=== PATIENT | female | born 1990 | race Caucasian/White ===

== ENCOUNTER 2023-08-08 09:38 | Emergency (ER) | payer OTHER, SELFPAY ==
[2023-08-08 09:45] VITALS: BP 124/60; PULSE 112; RESP 17; TEMP 36.6; O2SAT 99
[2023-08-08 09:49] VITALS: BP 121/64; BP 124/60; PULSE 112; PULSE 116; RESP 19; TEMP 35.7; O2SAT 96; O2SAT 99; BMI 29.3
--- NOTE | 2023-08-08 10:07 | ED_ITS ---
HPI - Nausea/Vomiting/Diarrhea General Chief complaint: Nausea/Vomiting/Diarrhea Stated complaint: N/V X1 DAY PER EMS Time Seen by Provider: 08/08/23 10:06 Source: patient Mode of arrival: ambulatory Limitations: no limitations History of Present Illness HPI Narrative: 33-year-old female presents emergency room with nausea vomiting diarrhea since last night her also has similar symptoms she called 911 due to cramping and spasms in both hands. Patient has had this problem in the past. She states she had some vomiting diarrhea will traveling in the hand carpal pedal spasms. They are very concerned because she became pale and could control the spasms. She denies any fevers chills she is on Ozempic to lose weight currently as well MD elicited complaint: nausea, vomiting and diarrhea Related Data Previous Rx's ?Medication ?Instructions ?Recorded ondansetron 4 mg disintegrating 4 mg PO Q6H #14 tabs 08/08/23 tablet Allergies Allergy/AdvReac Type Severity Reaction Status Date / Time No Known Allergies Allergy Verified 08/08/23 09:52 Review of Systems 2 Review of Systems: Review of systems: General: Patient denies any fever chills recent illness or falls Musculoskeletal: Denies back pain or body aches or other injuries HEENT: denies headache, runny nose, ear pain Respiratory: denies shortness of breath, cough Cardiovascular: no chest pain or palpitations : denies dysuria, frequency Abdomen: Diarrhea nausea vomiting denies abdominal pain Extremities: no swelling, no pain Skin: no diaphoresis Yes all other systems are reviewed and are negative PMFSH Social History Social History Smoked in Last 30 Days: No Substance Use Type: Marijuana Substance Use Frequency: Daily Last Used Substance: Hours (ago) Advance Directives: No Advance Directives Information Provided: No Physical Exam 2 Vital Signs: Vital Signs: Last Vital Signs Temp 96.2 F L 08/08/23 09:49 Pulse 112 H 08/08/23 09:49 Resp 19 08/08/23 09:49 BP 124/60 08/08/23 09:49 Pulse Ox 96 08/08/23 09:49 O2 Del Method Room Air 08/08/23 09:49 BMI result Body Mass Index 29.3 General: Well-appearing well-nourished in no signs of distress HEENT: Normocephalic atraumatic Neck: No signs of JVD, no masses no tenderness or lymphadenopathy Cardiovascular: Regular rate and rhythm Respiratory: Clear to auscultation bilaterally Abdomen: Soft nontender no masses Extremities: Normal pedal pulses no signs of edema Skin: Dry warm no rashes Back: No tenderness full ROM Medications Administered Discontinued Medications Generic Name Dose Route Start Last Admin Trade Name Maurizioq PRN Reason Stop Dose Admin Famotidine 20 mg 08/08/23 10:08 08/08/23 10:31 Famotidine/Pf 20 Mg/2 Ml Vial IVPUSH 08/08/23 10:09 20 mg ONCE ONE Administration Sodium Chloride 1,000 mls @ 999 mls/hr 08/08/23 10:15 08/08/23 10:32 Ns IV 08/08/23 11:15 999 mls/hr .Q1H1M ROSIO Administration Ondansetron HCl 4 mg 08/08/23 10:08 08/08/23 10:29 Ondansetron Hcl 4 Mg/2 Ml Vial IVPUSH 08/08/23 10:09 4 mg ONCE ONE Administration Medical Decision Making Medical Decision Making [facility] Narrative: I did explain to the patient that currently our chemistry analyzer is down that we have been waiting hours she is okay with following up on those as long as she is feeling better the patient fluids I did order labs but may not be able to get the results back in real time. Differential Diagnosis Differential Diagnoses: The differential diagnosis associated with the presentation includes carpal pedal spasm likely due to hyperventilation nausea vomiting diarrhea dehydration likely due to a virus as her just had the same thing Admission/Observation Consideration of admission/observation: Escalation of care including admission/observation considered Lab Data [facility] Lab Attestation statement: I reviewed the patient's lab results. 08/08/23 10:24 08/08/23 10:24 Labs: Lab Results 08/08/23 Range/Units 10:24 WBC 13.5 H (4.8-10.8) X10*3/uL RBC 5.13 (4.20-5.50) X10*6/uL Hgb 15.9 (12.0-16.0) g/dl Hct 44.7 (37.0-47.0) % MCV 87.1 (80.0-98.0) fL MCH 31.0 (27.0-33.0) pg MCHC 35.6 H (31.0-35.0) g/dl RDW 11.5 (11.0-16.0) % Plt Count 256 (160-400) X10*3/uL MPV 9.6 (9.4-12.3) fL Immature Gran % (Auto) 0.4 (0.0-0.4) % Neut % (Auto) 90.9 H (45-73) % Lymph % (Auto) 3.4 L (20-40) % [place] % (Auto) 4.8 (2-11) % Eos % (Auto) 0.4 (0-4) % Baso % (Auto) 0.1 (0-2) % Lymph # (Auto) 0.5 L (1.2-4.9) X10*3/uL [place] # (Auto) 0.7 (0.1-1.2) X10*3/uL Eos # (Auto) 0.1 (0.0-0.4) X10*3/uL Baso # (Auto) 0.0 (0.0-0.2) X10*3/uL Abs Immat Gran (auto) 0.06 H (0.00-0.03) X10*3/uL Absolute Neuts (auto) 12.3 H (2.0-8.3) x10*3/uL Absolute Nucleated RBC 0.000 (0.0-0.012) X10*3/uL Nucleated RBC % (auto) 0.0 (0.0-0.2) /100WBC Smear Tech's Comments VERIFIED Sodium 138 (135-145) mmol/L Potassium 2.9 L* (3.3-5.1) mmol/L Chloride 110 H (96-108) mmol/L Carbon Dioxide 22 (22-29) mmol/L Anion Gap 9 L (12-20) BUN 10 (9-16) mg/dL Creatinine 0.65 (0.5-1.4) mg/dL Estim Creat Clear Calc 114.8 Estimated GFR > 60 Random Glucose 87 (60-115) mg/dL Calcium 8.9 (8.4-10.2) mg/dL Total Bilirubin 0.9 (0.0-1.0) mg/dL Direct Bilirubin 0.3 (0.0-0.5) mg/dL AST 14 (5-31) U/L ALT 10 (0-31) U/L Alkaline Phosphatase 57 (39-117) U/L Total Protein 7.2 (6.5-8.0) g/dL Albumin 4.2 (3.5-5.0) g/dL Lipase 26 (8-78) U/L Beta HCG, Quant < 2 mIU/mL Discharge Plan Discharge Clinical Impression: Dehydration, Vomiting, Diarrhea, [place] spasm, Acute hypokalemia Patient Disposition: Home, Self-Care Instructions: Dehydration (ED), Potassium Content of Foods List (ED), Hypokalemia (ED), Acute Nausea and Vomiting (ED), Acute Diarrhea (ED), [place]popedal Spasm (ED) Additional Instructions: You were seen today in the emergency department after having cramps in her hands found to have though potassium. You are given medications including potassium and Zofran. I will send her home with Zofran they can use as needed for nausea and vomiting. You have any other concerns please do not hesitate to come back to emergency department Prescriptions: New ondansetron 4 mg tablet,disintegrating 4 mg PO Q6H Qty: 14 0RF Print Language: Tajik
--- NOTE | 2023-08-08 10:09 | PC.NURSE ---
Pt presents to ED from home via EMS, called for EMS due to N/V/D since last night, multiple episodes with no poor PO intake. Pt called for EMS due to cramping and spasms in both hands. Pt reports her was sick with similar symptoms. Pt denied any pain, CP, SOB, headache, falls. Pt is alert and oriented, breathing even and unlabored, skin dry and warm. Pt reports feeling of unsettled in her stomach. Hands negative for cramping at this time. Pt on cardiac surgeon, sinus tachycardia noted. VSS.
[2023-08-08] MEDS: ondansetron HCL 4 MG/2 ML VIAL IVPUSH (10:29)
[2023-08-08] MEDS: Famotidine/PF 20 MG/2 ML VIAL IVPUSH (10:31)
[2023-08-08] MEDS: 0.9 % Sodium Chloride 1,000 ML 999 ML IV (10:32)
[2023-08-08 10:35] LABS: Basophils Percent Auto 0.1 % (0-2); Eosinophils Absolute Auto 0.1 X10*3/uL (0.0-0.4); Eosinophils Percent Auto 0.4 % (0-4); Hematocrit 44.7 % (37.0-47.0); Hemoglobin 15.9 g/dl (12.0-16.0); Imm Gran Abs Auto 0.06 X10*3/uL (0.00-0.03); Imm Gran Pct Auto 0.4 % (0.0-0.4); Lymphocytes Absolute Auto 0.5 X10*3/uL (1.2-4.9); Lymphocytes Percent Auto 3.4 % (20-40); MANUAL DIFF FLAG SCAN; Mean Corpuscular HGB Conc 35.6 g/dl (31.0-35.0); Mean Corpuscular Volume 87.1 fL (80.0-98.0); Mean Platelet Volume 9.6 fL (9.4-12.3); Monocytes Absolute Auto 0.7 X10*3/uL (0.1-1.2); Monocytes Percent Auto 4.8 % (2-11); Neutrophils Absolute Auto 12.3 x10*3/uL (2.0-8.3); Neutrophils Percent Auto 90.9 % (45-73); Platelet Count 256 X10*3/uL (160-400); Red Blood Count 5.13 X10*6/uL (4.20-5.50); Red Cell Distribution Width 11.5 % (11.0-16.0); SCAN SMEAR FLAG 1; White Blood Count 13.5 X10*3/uL (4.8-10.8)
[2023-08-08 10:52] LABS: SLIDE REVIEW VERIFIED
[2023-08-08 11:16] LABS: Alanine Aminotransferase 10 U/L (0-31); Albumin Level 4.2 g/dL (3.5-5.0); Alkaline Phosphatase 57 U/L (39-117); Anion Gap 9 (12-20); Aspartate Amino Transferase 14 U/L (5-31); Bilirubin Direct 0.3 mg/dL (0.0-0.5); Bilirubin Total 0.9 mg/dL (0.0-1.0); Blood Urea Nitrogen 10 mg/dL (9-16); Calcium 8.9 mg/dL (8.4-10.2); Carbon Dioxide 22 mmol/L (22-29); Chloride 110 mmol/L (96-108); Creatinine Clr Calc Pharmacy 114.8; Estimated Glomerular Filt Rate > 60; Glucose Random 87 mg/dL (60-115); HCG Quantitative < 2 mIU/mL; Lipase 26 U/L (8-78); Potassium 2.9 mmol/L (3.3-5.1); Sodium 138 mmol/L (135-145); Total Protein 7.2 g/dL (6.5-8.0)
[2023-08-08 12:00] VITALS: BP 110/65; PULSE 100; RESP 16; O2SAT 98
[2023-08-08] MEDS: Potassium Chloride ER 20 MEQ TAB.ER.PRT 40 MEQ PO (12:01)
[2023-08-08] MEDS: Potassium Chloride/H20 10 MEQ/100 ML PIGGYBACK 100 MEQ IV ×2 (12:12→13:21)
[2023-08-08 14:38] VITALS: BP 107/69; PULSE 102; RESP 18; TEMP 36.2; O2SAT 98
[2023-08-08 14:39] VITALS: BP 107/66; PULSE 102; RESP 17; TEMP 36.2
== END 2023-08-08 14:41 | disposition home or self-care (01) ==
PROVIDERS: Emergency Provider Student in an Organized Health Care Education/Training Program; PCP Nurse Practitioner Family
DX: R11.2 Nausea with vomiting, unspecified (principal); E86.0 Dehydration; R25.2 Cramp and spasm; E87.6 Hypokalemia; Z79.85 Long-term (current) use of injectable non-insulin antidiabetic drugs; Z79.899 Other long term (current) drug therapy
CPT/HCPCS: 36415; 80048; 80076; 83690; 84702; 85025; 96361; 96365; 96375; 99284; J2405; J3480

== ENCOUNTER 2025-02-27 08:49 | Emergency (ER) | payer OTHER, SELFPAY ==
[2025-02-27 08:53] VITALS: BP 135/64; PULSE 92; RESP 18; TEMP 36.8; O2SAT 99
--- NOTE | 2025-02-27 09:20 | ED.GENADULT ---
HPI - General Adult General Chief complaint: General Medical Stated complaint: SOB, spasms Time Seen by Provider: 02/27/25 09:10 Source: patient Mode of arrival: ambulatory Limitations: no limitations History of Present Illness HPI narrative: This is a 35 years old female presented to the emergency department with a chief complaint of nausea vomiting tingling in the face hands. She has started Zepbound 7.5 mg she took 1 dose yesterday. Denies any fever chills vomiting abdominal pain Onset (ago): hour(s) (2) Radiation: non-radiation Severity: mild Quality: burning Relieving factors: none Exacerbating factors: none Associated symptoms: denies other symptoms Related Data Previous Rx's ?Medication ?Instructions ?Recorded ondansetron 4 mg disintegrating 4 mg PO Q6H #14 tabs 08/08/23 tablet Allergies Allergy/AdvReac Type Severity Reaction Status Date / Time No Known Allergies Allergy Verified 02/27/25 08:56 Review of Systems Constitutional: Constitutional: Reports no additional constitutional complaints ENT: Reports system reviewed and no additional complaints, except as documented Gastrointestinal: Gastrointestinal: Reports vomiting [facility] Past Medical History Attestation statement: The following information was validated with the patient. [facility] Narrative: Patient denies any major medical problems Social History Social History Smoked in Last 30 Days: No Use of substances other than those prescribed or required for medical reasons: No Substance Use Type: Marijuana Advance Directives: Yes Advance Directives Information Provided: Yes Advance Directives on File: No Patient : No Physical Exam ED Exam Exam: No acute distress comfortable in the stretcher Vital Signs: Vital Signs - 24 hr 02/27/25 08:53 02/27/25 10:10 Temperature 98.2 F 97.6 F Pulse Rate 92 82 Respiratory Rate 18 18 Blood Pressure 135/64 115/73 Pulse Oximetry 99 100 Oxygen Delivery Method Room Air Room Air BMI result Body Mass Index 30.0 Const General: cooperative Nutritional Appearance: well nourished Orientation/consciousness: patient oriented x3 HENMT Head: Yes normal to inspection Ears: hearing grossly normal bilaterally General nose exam: Normal external nose present Face and sinus: Yes normal facial exam Mouth: Normal oral and palatal mucosa present Neck Neck: Yes normal visual inspection Chest Chest palpation & inspection: normal inspection of the chest Resp Effort & Inspection: normal respiratory effort Cardio Jugular venous distension: no JVD Rate: regular rate Rhythm: regular rhythm GI Inspection: Yes normal to inspection Palpation (GI): Soft to palpation Skin General skin exam: no rashes or lesions noted Lesions: no lesions Rashes: no rashes Neuro General: patient oriented x3 Course Reevaluation(s) Reevaluation #1: better Time: 09:47 Reevaluation #2: Asymptomatic tolerating p.o. well anticipate discharge Time: 11:40 Medications Administered Discontinued Medications Generic Name Dose Route Start Last Admin Trade Name Freq PRN Reason Stop Dose Admin Sodium Chloride 1,000 mls @ 999 mls/hr 02/27/25 09:30 02/27/25 10:40 Ns IVCONT 02/27/25 10:30 Infused .Q1H1M ROSIO Infusion Ondansetron HCl 4 mg 02/27/25 09:18 02/27/25 09:30 Ondansetron Hcl 4 Mg/2 Ml Vial IVPUSH 02/27/25 09:19 4 mg ONCE ONE Administration Medical Decision Making Medical Decision Making [facility] Narrative: Patient is here with nausea and vomiting with the place an IV administer IV fluid antiemetic Differential Diagnosis Differential Diagnoses: The differential diagnosis associated with the presentation includes Dehydration/hypokalemia/hyponatremia Admission/Observation Consideration of admission/observation: Escalation of care including admission/observation considered Lab Data [facility] Lab Attestation statement: I reviewed the patient's lab results. 02/27/25 09:29 02/27/25 10:19 Labs: Lab Results 02/27/25 02/27/25 Range/Units 09:29 10:19 WBC 10.7 (4.8-10.8) X10*3/uL RBC 4.86 (4.20-5.50) X10*6/uL Hgb 15.2 (12.0-16.0) g/dl Hct 43.3 (37.0-47.0) % MCV 89.1 (80.0-98.0) fL MCH 31.3 (27.0-33.0) pg MCHC 35.1 H (31.0-35.0) g/dl RDW 11.8 (11.0-16.0) % Plt Count 263 (160-400) X10*3/uL MPV 10.4 (9.4-12.3) fL Immature Gran % (Auto) 0.3 (0.0-0.4) % Neut % (Auto) 86.0 H (45-73) % Lymph % (Auto) 9.3 L (20-40) % [place] % (Auto) 3.5 (2-11) % Eos % (Auto) 0.6 (0-4) % Baso % (Auto) 0.3 (0-2) % Lymph # (Auto) 1.0 L (1.2-4.9) X10*3/uL [place] # (Auto) 0.4 (0.1-1.2) X10*3/uL Eos # (Auto) 0.1 (0.0-0.4) X10*3/uL Baso # (Auto) 0.0 (0.0-0.2) X10*3/uL Abs Immat Gran (auto) 0.03 (0.00-0.03) X10*3/uL Absolute Neuts (auto) 9.2 H (2.0-8.3) x10*3/uL Absolute Nucleated RBC 0.000 (0.0-0.012) X10*3/uL Nucleated RBC % (auto) 0.0 (0.0-0.2) /100WBC Sodium 139 (135-145) mmol/L Potassium 3.3 (3.3-5.1) mmol/L Chloride 110 H (96-108) mmol/L Carbon Dioxide 21 L (22-29) mmol/L Anion Gap 11 L (12-20) BUN 8 L (9-16) mg/dL Creatinine 0.53 (0.5-1.4) mg/dL Estim Creat Clear Calc 139.8 Estimated GFR > 60 Random Glucose 68 (60-115) mg/dL Calcium 8.3 L D (8.4-10.2) mg/dL Magnesium 1.9 (1.6-2.6) mg/dL Total Bilirubin 0.5 (0.0-1.0) mg/dL AST 21 (5-31) U/L ALT 10 (0-31) U/L Alkaline Phosphatase 61 (39-117) U/L Total Protein 7.0 (6.5-8.0) g/dL Albumin 4.4 (3.5-5.0) g/dL Beta HCG, Quant < 2 mIU/mL Independent Historian Clinical information obtained from an independent historian. History obtained from or confirmed by: Spouse Discharge Plan Discharge Clinical Impression: Vomiting Qualifiers: Vomiting type: unspecified Nausea presence: with nausea Qualified Code(s): R11.2 - Nausea with vomiting, unspecified Patient Disposition: Home, Self-Care Instructions: Acute Nausea and Vomiting (ED) Prescriptions: No Action ondansetron 4 mg tablet,disintegrating 4 mg PO Q6H Qty: 14 0RF Print Language: [place] Citizen
[2025-02-27 09:35] LABS: MANUAL DIFF FLAG NO
[2025-02-27 09:38] LABS: Hematocrit 43.3 % (37.0-47.0); Hemoglobin 15.2 g/dl (12.0-16.0); Imm Gran Abs Auto 0.03 X10*3/uL (0.00-0.03); Imm Gran Pct Auto 0.3 % (0.0-0.4); Lymphocytes Absolute Auto 1.0 X10*3/uL (1.2-4.9); Mean Corpuscular HGB Conc 35.1 g/dl (31.0-35.0); Mean Corpuscular Hemoglobin 31.3 pg (27.0-33.0); Mean Corpuscular Volume 89.1 fL (80.0-98.0); NRBC Abs Auto 0.000 X10*3/uL (0.0-0.012); NRBC Pct Auto 0.0 /100WBC (0.0-0.2); Platelet Count 263 X10*3/uL (160-400); Red Blood Count 4.86 X10*6/uL (4.20-5.50); White Blood Count 10.7 X10*3/uL (4.8-10.8)
[2025-02-27 10:10] VITALS: BP 115/73; PULSE 82; RESP 18; TEMP 36.4; O2SAT 100
[2025-02-27 10:54] LABS: Alanine Aminotransferase 10 U/L (0-31); Albumin Level 4.4 g/dL (3.5-5.0); Alkaline Phosphatase 61 U/L (39-117); Anion Gap 11 (12-20); Aspartate Amino Transferase 21 U/L (5-31); Blood Urea Nitrogen 8 mg/dL (9-16); Calcium 8.3 mg/dL (8.4-10.2); Carbon Dioxide 21 mmol/L (22-29); Chloride 110 mmol/L (96-108); Creatinine Clr Calc Pharmacy 139.8; Estimated Glomerular Filt Rate > 60; Magnesium 1.9 mg/dL (1.6-2.6); Potassium 3.3 mmol/L (3.3-5.1); Sodium 139 mmol/L (135-145); Total Protein 7.0 g/dL (6.5-8.0)
[2025-02-27 11:43] VITALS: BP 115/73; PULSE 82; RESP 18; TEMP 36.4; O2SAT 100
== END 2025-02-27 11:47 | disposition home or self-care (01) ==
PROVIDERS: Emergency Provider Emergency Medicine; PCP Nurse Practitioner Family
DX: R11.2 Nausea with vomiting, unspecified (principal); R06.02 Shortness of breath; R20.2 Paresthesia of skin
CPT/HCPCS: 36415; 80053; 83735; 84702; 85025; 96361; 96374; 99284; J2405